=== PATIENT | female | born 1995 | race Caucasian/White ===

== ENCOUNTER 2017-01-21 17:11 | Emergency (ER) | payer MEDICAID, OTHER ==
--- NOTE | 2017-01-21 17:33 | ED PDOC ---
Arrival/HPI - General Historian: Patient <Maikol Aguilar - Last Filed: 01/21/17 19:10> <Tashi Raya - Last Filed: 01/21/17 20:43> - General Chief Complaint: ENT Problem Time Seen by Provider: 01/21/17 17:26 - History of Present Illness Narrative History of Present Illness (Text): 01/21/17 17:27 21 y/o female, no pmh, nkda, c/o sorethroat/headache/fatigue and nausea x 2 days. Pt. stated that she has painful swallowing, associated with frontal headache, feels fatigue and tired, feels nauseous now, no dizziness, no night sweat, no palpitation, no numbness or tingling, no drooling but painful to swallow, no other medical or psychological complaints. (Maikol Aguilar) Past Medical History - Provider Review Nursing Documentation Reviewed: Yes - Cardiac Hx Cardiac Disorders: No - Pulmonary Hx Respiratory Disorders: No - Neurological Hx Neurological Disorder: No - HEENT Hx HEENT Disorder: Yes Other/Comment: TONSILITIS - Renal Hx Renal Disorder: No - Endocrine/Metabolic Hx Endocrine Disorders: No - Hematological/Oncological Hx Blood Disorders: No - Integumentary Hx Dermatological Disorder: No - Musculoskeletal/Rheumatological Hx Musculoskeletal Disorders: No - Gastrointestinal Hx Gastrointestinal Disorders: No - Genitourinary/Gynecological Hx Genitourinary Disorders: No - Psychiatric Hx Psychophysiologic Disorder: No Hx Substance Use: No <Maikol Aguilar - Last Filed: 01/21/17 19:10> Family/Social History - Physician Review Nursing Documentation Reviewed: Yes Family/Social History: Unknown Family HX Smoking Status: Never Smoked Hx Alcohol Use: No Hx Substance Use: No <Maikol Aguilar - Last Filed: 01/21/17 19:10> Allergies/Home Meds <Maikol Aguilar - Last Filed: 01/21/17 19:10> <Tashi aRya - Last Filed: 01/21/17 20:43> Allergies/Adverse Reactions: Allergies No Known Allergies Allergy (Verified 01/21/17 17:15) Review of Systems - Review of Systems Constitutional: Fatigue, Fevers Eyes: absent: Vision Changes ENT: Sore Throat. absent: Hearing Changes Respiratory: absent: SOB, Cough Cardiovascular: absent: Chest Pain Gastrointestinal: Nausea. absent: Abdominal Pain, Vomiting Musculoskeletal: absent: Arthralgias, Back Pain, Neck Pain Neurological: Headache. absent: Dizziness, Focal Weakness, Speech Changes, Facial Droop, Disequilibrium Psychiatric: absent: Anxiety, Depression, Suicidal Ideation <Maikol Aguilar Q - Last Filed: 01/21/17 19:10> Physical Exam Vital Signs Reviewed: Yes Temperature: Febrile Blood Pressure: Normal Pulse: Tachycardic Respiratory Rate: Normal Appearance: Positive for: Well-Appearing, Non-Toxic, Uncomfortable Pain Distress: Severe Mental Status: Positive for: Alert and Oriented X 3 - Systems Exam Head: Present: Atraumatic, Normocephalic, Other (+ttp on the lt. maxillary sinus with no facial or periorbital swelling. ) Pupils: Present: PERRL Extroacular Muscles: Present: EOMI Conjunctiva: Present: Normal Ears: Present: NORMAL TM, Normal Canal. No: Erythema Mouth: Present: Moist Mucous Membranes Pharnyx: Present: ERYTHEMA, TONSILS ENLARGED. No: EXUDATE, Peritonsilar Swelling, Uvular Deviation, Muffled/Hoarse Voice, Strider, Soft Palate/Uvular Edema Nose (External): No: Abrasion, Contusion Nose (Internal): Present: Normal Inspection, No Active Bleeding. No: Rhinorrhea , Septal Hematoma, Epistaxis Neck: Present: Normal Range of Motion, Lymphadenopathy (+lt. anterior cervical lymphenapathy), Trachea Midline. No: Meningeal Signs, MIDLINE TENDERNESS, Paraspinal Tenderness Respiratory/Chest: Present: Clear to Auscultation, Good Air Exchange. No: Respiratory Distress, Accessory Muscle Use, Wheezes, Decreased Breath Sounds, Rales, Retracting, Rhonchi, Tachypneic, Tender to Palpation, Other Cardiovascular: Present: Regular Rate and Rhythm, Normal S1, S2. No: Murmurs Abdomen: Present: Normal Bowel Sounds. No: Tenderness, Distention, Peritoneal Signs Back: Present: Normal Inspection Upper Extremity: Present: Normal Inspection. No: Cyanosis, Edema Lower Extremity: Present: Normal Inspection. No: Edema Neurological: Present: GCS=15, Speech Normal, Motor Func Grossly Intact, Gait Normal, Memory Normal Skin: Present: Warm, Dry, Normal Color. No: Rashes Psychiatric: Present: Alert, Oriented x 3, Normal Insight, Normal Concentration <Maikol Aguilar - Last Filed: 01/21/17 19:10> Medical Decision Making - Lab Interpretations I have reviewed the lab results: Yes Interpretation: Abnormal lab values (wbc 11.6) <Maikol Aguilar - Last Filed: 01/21/17 19:10> <Tashi Raya - Last Filed: 01/21/17 20:43> ED Course and Treatment: 01/21/17 17:37 -labs -IVF/toradol/decadron -tylenol 650mg po -Observe and reassess 01/21/17 18:40 -Labs are nonsignificant except wbc 11.6, pt. has bacterial ENT infection as this is expected. Pt. feeling much better, vitally stable. -Discharge home with augmentin, flonase, claritin d24, motrin, stay hydrated, follow up with your own pmd and ENT within 2 days, return to the ER for any new or worsening signs or symptoms. (Maikol Aguilar) - Lab Interpretations Lab Results: 01/21/17 18:20 Lab Results 01/21/17 18:20: WBC 11.6 H, RBC 5.53, Hgb 14.4, Hct 44.1, MCV 79.7 L, MCH 26.0, MCHC 32.7, RDW 14.8 H, Plt Count 259, MPV 9.7, Gran % 75.4 H, Lymph % (Auto) 16.0 L, Mccracken % (Auto) 8.4 H, Eos % (Auto) 0.0 L, Baso % (Auto) 0.2, Gran # 8.72 H, Lymph # 1.9, Mccracken # 1.0 H, Eos # 0.0, Baso # 0.02 - Medication Orders Current Medication Orders: Discontinued Medications Acetaminophen (Tylenol 325mg Tab) 650 mg PO STAT STA Stop: 01/21/17 17:27 Last Admin: 01/21/17 18:08 Dose: 650 mg Amoxicillin/Clavulanate Potassium (Augmentin 875 Mg-125 Mg Tab) 1 tab PO STAT STA PRN Reason: Protocol Stop: 01/21/17 18:41 Last Admin: 01/21/17 19:19 Dose: 1 tab Dexamethasone (Decadron Inj) 8 mg IVP STAT STA Stop: 01/21/17 17:35 Last Admin: 01/21/17 18:08 Dose: 8 mg Sodium Chloride (Sodium Chloride 0.9%) 1,000 mls @ 999 mls/hr IV .Q1H1M STA Stop: 01/21/17 18:35 Last Admin: 01/21/17 18:07 Dose: 999 mls/hr Ketorolac Tromethamine (Toradol) 30 mg IVP STAT STA Stop: 01/21/17 17:35 Last Admin: 01/21/17 18:09 Dose: 30 mg - PA / SUPPLIER RELATIONSHIP DIRECTOR / Resident Statement IVETTE has reviewed & agrees with the documentation as recorded. <Maikol Aguilar - Last Filed: 01/21/17 19:10> - PA / SUPPLIER RELATIONSHIP DIRECTOR / Resident Statement IVETTE has reviewed & agrees with the documentation as recorded. <Tashi Raya - Last Filed: 01/21/17 20:43> Disposition/Present on Arrival - Present on Arrival Any Indicators Present on Arrival: No History of DVT/PE: No History of Uncontrolled Diabetes: No Urinary Catheter: No History of Decub. Ulcer: No History Surgical Site Infection Following: None - Disposition Have Diagnosis and Disposition been Completed?: Yes Disposition Time: 17:38 Patient Plan: Discharge <Maikol Aguilar - Last Filed: 01/21/17 19:10> <Tashi Raya - Last Filed: 01/21/17 20:43> - Disposition Diagnosis: Tonsillitis, Sinusitis Disposition: HOME/ ROUTINE Condition: IMPROVED Additional Instructions: Discharge home with augmentin, flonase, claritin d24, motrin, stay hydrated, follow up with your own pmd and ENT within 2 days, return to the ER for any new or worsening signs or symptoms. Prescriptions: Amoxicillin/Clavulanate [Augmentin 875 MG-125 MG] 1 tab PO BID #20 tab Fluticasone Nasal [Flonase] 1 spr NS DAILY #1 spr Ibuprofen [Motrin] 600 mg PO QID PRN #24 tab PRN Reason: Other Loratadine/Pseudoephedrine [Claritin-D 24 Hour Tablet] 1 each PO DAILY #6 tab.er.24h Referrals: Ronnell Guerrier DO [[facility]] - [place] up with primary [facility] [place] [facility] [place] - Follow up with primary Forms: WORK NOTE
[2017-01-21] MEDS ORDERED: Dexamethasone 4 mg/1 ml IVP STA (17:34)
[2017-01-21] MEDS ORDERED: Sodium Chloride 0.9% 1,000 ML IV STA (17:35)
[2017-01-21 18:33] LABS: ADD MANUAL DIFF? NO
[2017-01-21 18:36] LABS: BASO # 0.02 K/mm3 (0.0-2.0); BASO % 0.2 % (0.0-3.0); GRAN # 8.72 (1.4-6.5); GRAN % 75.4 % (50.0-68.0); HEMATOCRIT 44.1 % (36.0-48.0); LYMPH # 1.9 (1.2-3.4); MEAN CELL VOLUME 79.7 fL (80.0-105.0); MEAN CORPUSCULAR HGB CONC 32.7 g/dl (31.0-37.0); MEAN PLATELET VOLUME 9.7 fl (7.0-11.0); MONO % 8.4 % (1.0-6.0); PLATELET COUNT 259 10^3/uL (120.0-450.0); RED CELL DISTRIBUTION WIDTH 14.8 % (11.5-14.5); WHITE BLOOD COUNT 11.6 10^3/ul (4.5-11.0)
[2017-01-21] MEDS ORDERED: Amoxicillin-Clav 875-125 mg Tab PO STA (18:40)
[2017-01-21 18:55] VITALS: TEMP 99
[2017-01-21 20:09] VITALS: BP 116/69; PULSE 88; RESP 17; O2SAT 99
== END 2017-01-21 19:45 | disposition home or self-care (01) ==
LOC: ED 17:11
DX: J03.90 Acute tonsillitis, unspecified (principal); J32.9 Chronic sinusitis, unspecified
CPT/HCPCS: 85025; 96374; 96375; 99283; J1100; J1885; J7040

== ENCOUNTER 2017-01-23 15:41 | Emergency (ER) | payer MEDICAID, OTHER ==
[2017-01-23 15:49] VITALS: BP 116/82; PULSE 99; RESP 18; TEMP 99.3; O2SAT 100
--- NOTE | 2017-01-23 16:39 | ED PDOC ---
Arrival/HPI - General Chief Complaint: Dental Pain Time Seen by Provider: 01/23/17 16:04 Historian: Patient - History of Present Illness Narrative History of Present Illness (Text): 01/23/17 16:35 Patient reports 3 days of sore throat, was seen and evaluated yesterday and dx with tonsillitis, given Rx for amoxicillin, then noticed today she has painful sores in the roof of her mouth. Otherwise: (-) cough, (+) sore throat, (-) URI symptoms, (-) SOB, (-) chest pain, (-) N/V/D, (-) abdominal pain, (-) flank pain , (-) urinary symptoms, (-) recent travel, (-) sick contacts, (-) rash. Patient is also complaining of a painful mass of gradually increasing size of the R flank which she noticed today, states that she has had a cyst to that area for >5 years. Otherwise: (-) foreign body, (-) fever, (-) chills. PMD none Past Medical History - Provider Review Nursing Documentation Reviewed: Yes - Infectious Disease Hx of Infectious Diseases: None - Tetanus Immunization Tetanus Immunization: Up to Date - Cardiac Hx Cardiac Disorders: No - Pulmonary Hx Respiratory Disorders: No - Neurological Hx Neurological Disorder: No - HEENT Hx HEENT Disorder: Yes Other/Comment: TONSILITIS - Renal Hx Renal Disorder: No - Endocrine/Metabolic Hx Endocrine Disorders: No - Hematological/Oncological Hx Blood Disorders: No - Integumentary Hx Dermatological Disorder: No - Musculoskeletal/Rheumatological Hx Musculoskeletal Disorders: No - Gastrointestinal Hx Gastrointestinal Disorders: No - Genitourinary/Gynecological Hx Genitourinary Disorders: No - Psychiatric Hx Psychophysiologic Disorder: No Hx Substance Use: No Family/Social History - Physician Review Nursing Documentation Reviewed: Yes Family/Social History: No Known Family HX Smoking Status: Never Smoked Hx Alcohol Use: No Hx Substance Use: No Allergies/Home Meds Allergies/Adverse Reactions: Allergies No Known Allergies Allergy (Verified 01/23/17 15:48) Review of Systems - Review of Systems Constitutional: Normal, Fevers. absent: Fatigue, Weight Change ENT: Normal, Sore Throat. absent: Hearing Changes, Tinnitus, Epistaxis, Sinus Congestion Respiratory: Normal. absent: SOB, Cough, Sputum Cardiovascular: Normal. absent: Chest Pain, Palpitations, Edema Musculoskeletal: Normal. absent: Arthralgias, Back Pain, Neck Pain Skin: Normal, Abscess, Other (chronic cyst to the R flank). absent: Rash, Pruritis, Skin Lesions, Laceration Physical Exam - Physical Exam Narrative Physical Exam (Text): 01/23/17 16:39 GENERAL APPEARANCE: Patient is awake, alert, oriented x 3, in no acute distress. SKIN: Warm, dry; (-) cyanosis, (-) rash. (+) 3x2 cm tender, erythematous, non- fluctuant, indurated abscess to the R flank. EYES: (-) conjunctival pallor, (-) scleral icterus, (-) conjunctival hemorrhage. ENMT: Mucous membranes moist. Airway patent: (-) stridor. Pharynx: (+) erythema, (+) mild exudate, (+) few circular erythematous lesions noted to the tonsils and the hard palate. NECK: (-) tenderness, (-) stiffness, (-) meningismus, (-) lymphadenopathy. CHEST AND RESPIRATORY: (-) accessory muscle use. Lungs: (-) rales, (-) rhonchi, (-) wheezes, (-) rub; breath sounds equal bilaterally. HEART AND CARDIOVASCULAR: (-) irregularity; (-) murmur, (-) gallop, (-) rub. ABDOMEN AND GI: Soft; (-) tenderness, (-) guarding; (-) organomegaly; (-) mass ; (-) CVA tenderness. EXTREMITIES: (-) deformity; (-) cellulitis, (-) lymphangitis; (-) subungual hemorrhage; (-) edema. NEURO AND PSYCH: Mental status as above; (-) focal findings. Vital Signs Temp Pulse Resp BP Pulse Ox 01/23/17 15:45 99.3 F 99 H 18 116/82 100 Medical Decision Making ED Course and Treatment: 01/23/17 16:33 21 yo F presents with herpangina and abscess to the R flank. Patient advised to discontinue taking amoxicillin. Patient informed that herpangina is a viral infection and that amoxicillin is not needed to treat this type of infection. In regards to the abscess, patient will be prescribed Keflex and Bactrim. Advised to continue taking Motrin for any fever or pain. Patient states she fully agrees with and understands discharge instructions. States that she agrees with the plan and disposition. Verbalized and repeated discharge instructions and plan. I have given the patient opportunity to ask any additional questions. Follow up with primary care physician in 1-2 days without fail. Advised to take medication as prescribed. Return to the emergency room at any time for any new or worsening symptoms. - PA / AGRICULTURAL SERVICE TECHNICIAN / Resident Statement MD/DO has reviewed & agrees with the documentation as recorded. Disposition/Present on Arrival - Present on Arrival Any Indicators Present on Arrival: No History of DVT/PE: No History of Uncontrolled Diabetes: No Urinary Catheter: No History of Decub. Ulcer: No History Surgical Site Infection Following: None - Disposition Have Diagnosis and Disposition been Completed?: Yes Diagnosis: Abscess, Herpangina Disposition: HOME/ ROUTINE Disposition Time: 16:30 Patient Plan: Discharge Condition: GOOD Discharge Instructions (ExitCare): Abscess (ED), Hand, Foot, and Mouth Disease (ED) Print Language: PARAGUAYAN Additional Instructions: Thank you for letting us take care of you today. You were treated for abscess, [id number]-mouth disease. The emergency medical care you received today was directed at your acute symptoms. If you were prescribed any medication, please fill it and take as directed. It may take several days for your symptoms to resolve. Return to the Emergency Department if your symptoms worsen, do not improve, or if you have any other problems. Please contact your doctor in 2 days for re-evaluation and follow up / or call one of the physicians/clinics you have been referred to that are listed on the Patient Visit Information form that is included in your discharge packet. Bring any paperwork you were given at discharge with you along with any medications you are taking to your follow up visit. Our treatment cannot replace ongoing medical care by a primary care provider (PCP) outside of the emergency department. Thank you for allowing the [facility] team to be part of your care today. Prescriptions: Cephalexin [Keflex] 500 mg PO Q6 #28 capsule Sulfamethoxazole/Trimethoprim [Bactrim DS 800 mg-160 mg] 2 tab PO BID #28 tab Referrals: [facility] [place] - Follow up with primary
== END 2017-01-23 17:00 | disposition home or self-care (01) ==
LOC: ED 15:41
DX: B08.5 Enteroviral vesicular pharyngitis (principal); L02.211 Cutaneous abscess of abdominal wall